=== PATIENT | female | born 1990 | race Caucasian/White ===

== ENCOUNTER 2017-01-21 10:19 | Day surgery (SDC) | payer BC ==
[~2017-01-21] VITALS: Ht 180.3 cm; Wt 103.9 kg
[2017-01-21 10:43] VITALS: BP 130/82
[2017-01-21] MEDS ORDERED: IBUPROFEN800 MG PO ×2 (12:53→13:05)
[2017-01-21 13:20] VITALS: BP 135/70
[2017-01-21 13:55] VITALS: BP 138/73
[2017-01-21 14:01] VITALS: BP 138/73
== END 2017-01-21 14:10 | disposition home or self-care (01) ==
LOC: SDC 10:19
PROC: 0UBC7ZX Excision of Cervix, Via Natural or Artificial Opening, Diagnostic (ICD-10-PCS; principal; 2017-01-21)
DX: D06.9 Carcinoma in situ of cervix, unspecified (principal)
CPT/HCPCS: 88305; 88307; J1100; J1885; J2250; J2405; J3010